=== PATIENT | female | born 1960 | race Caucasian/White ===

== ENCOUNTER 2016-07-24 05:58 | Day surgery (SDC) | payer OTHER ==
[~2016-07-24 05:58] MED LIST: CELEXA20 PO; PROAIR HFA INH; ULTRAM50 PO; VITAMIN D31000 UNIT PO; XANAX1 MG PO; ZANAFLEX 4 MG TA4 MG PO
== END 2016-07-24 08:30 | disposition home or self-care (01) ==
LOC: SDC 05:58
PROVIDERS: Orthopaedic Surgery
PROC: 3E0R3BZ Introduction of Anesthetic Agent into Spinal Canal, Percutaneous Approach (ICD-10-PCS; 2016-07-24)
PROC: B01BYZZ Fluoroscopy of Spinal Cord using Other Contrast (ICD-10-PCS; 2016-07-24)
PROC: 3E0R33Z Introduction of Anti-inflammatory into Spinal Canal, Percutaneous Approach (ICD-10-PCS; principal; 2016-07-24 07:15)
DX: M54.16 Radiculopathy, lumbar region (principal); Z98.890 Other specified postprocedural states
CPT/HCPCS: J2250; J3010; Q9967